=== PATIENT | female | born 1935 | race American Indian/Alaskan Native ===

== ENCOUNTER 2017-03-28 10:09 | Emergency (ER) | payer MEDICARE ==
[2017-03-28 11:29] LABS: Basophils % (Auto) 0.8 % (0.0-1.8); Eosinophils # (Auto) 0.2 K/mm3 (0.0-0.4); Hemoglobin 13.1 gm/dl (10.1-14.3); Lymphocytes # (Auto) 1.8 K/mm3 (1.2-5.4); Lymphocytes % (Auto) 28.5 % (13.4-35.0); Mean Corpuscular HGB Conc 33 % (30-34); Mean Corpuscular Hemoglobin 28 pg (28-32); Mean Corpuscular Volume 86 fl (79-97); Monocytes # (Auto) 0.5 K/mm3 (0.0-0.8); Monocytes % (Auto) 7.3 % (0.0-7.3); Platelet Count 139 K/mm3 (140-440); Red Blood Count 4.63 M/mm3 (3.65-5.03)
[2017-03-28 11:43] LABS: Calcium 9.5 mg/dL (8.4-10.2)
--- NOTE | 2017-03-28 12:18 | XRay Report ---
RIGHT FOOT, 3 views: History: Pain and discoloration of great toe Limited exam with only 2 views. There is a questionable cortical defect at the base of the great toe which could represent a fracture. This is only seen on the frontal view. Please correlate with the patient. The remaining bony structures are intact. There are moderate diffuse degenerative changes. Large plantar spur. Diffuse soft tissue swelling. IMPRESSION: Questionable fracture of the great toe.
[2017-03-28] MEDS ORDERED: PERCOCET 5/325 ONE (20:10)
[2017-03-28] MEDS ORDERED: PERCOCET 5/325 PO PRN (20:13)
--- NOTE | 2017-03-29 01:57 | Emergency Department Report ---
HPI - General Chief Complaint: Extremity Injury, Lower Time Seen by Provider: 03/29/17 01:40 - HPI HPI: Room 4 The patient is a 81-year-old female presented with a chief complaint of right great toe pain. The patient states she's had pain in her right great toe since 03/13/2017. Patient states pain is intermittent. Patient denies any preceding trauma to the right great toe. Patient denies any history of fever. Patient describes pain as stinging in nature. Patient states upon arrival her pain was partially 7-8/10 but after being given Percocet is decreased to 3/10 currently. Patient denies any other forms of pain. Patient acknowledges she has a history of gout and rheumatoid arthritis Location: Right great toe Duration: Approximately 2.5 weeks Quality: Stinging Severity: Currently 3/10 Modifying factors: [see above] Context: [see above] Mode of transportation: [not driving] ED Past Medical Hx - Past Medical History Previous Medical History?: Yes Hx Hypertension: Yes Hx Diabetes: Yes Hx of Cancer: Yes ([place], 2012) - Surgical History Past Surgical History?: Yes Additional Surgical History: L mastectomy 2012; cervical fusion - Family History Family history: no significant - Social History Smoking Status: Never Smoker Substance Use Type: None - Medications Home Medications: Home Medications Medication Instructions Recorded Confirmed Last Taken Type Colchicine [Colcrys] 0.6 mg PO DAILY #30 tablet 03/29/17 Unknown Rx oxyCODONE /ACETAMINOPHEN [Percocet 1 - 2 tab PO Q6HR PRN #14 tablet 03/29/17 Unknown Rx 5/325] ED Review of Systems ROS: Stated complaint: RIGHT BIG TOE PAIN Other details as noted in HPI Constitutional: denies: fever Eyes: denies: eye pain ENT: denies: throat pain Cardiovascular: denies: chest pain Gastrointestinal: denies: abdominal pain Musculoskeletal: arthralgia, myalgia Neurological: denies: headache Physical Exam - Physical Exam Vital Signs: Vital Signs 03/28/17 03/28/17 03/29/17 10:23 20:03 01:45 Temperature 98.2 F 98 F Pulse Rate 94 H 87 Respiratory 18 18 16 Rate Blood Pressure 152/110 191/117 O2 Sat by Pulse 99 99 98 Oximetry Physical Exam: GENERAL: The patient is well-developed well-nourished female lying on stretcher not appear to be in acute distress. [] HEENT: Normocephalic. Atraumatic. Extraocular motions are intact. Patient has moist mucous membranes. NECK: Supple. Trachea midline CHEST/LUNGS: There is no respiratory distress noted. HEART/CARDIOVASCULAR: Regular. There is no tachycardia. There is no gallop rub or murmur. ABDOMEN: Abdomen is soft, nontender. Patient has normal bowel sounds. There is no abdominal distention. SKIN: There is no rash. There is no edema. There is no diaphoresis. No cellulitis appreciated of the right great toe NEURO: The patient is awake, alert, and oriented. The patient is cooperative. The patient has normal speech MUSCULOSKELETAL: There is pain and tenderness of the right great toe. There is no evidence of acute injury. ED Course Vital Signs 03/28/17 03/28/17 03/29/17 10:23 20:03 01:45 Temperature 98.2 F 98 F Pulse Rate 94 H 87 Respiratory 18 18 16 Rate Blood Pressure 152/110 191/117 O2 Sat by Pulse 99 99 98 Oximetry ED Medical Decision Making - Lab Data Result diagrams: 03/28/17 11:15 03/28/17 11:15 Laboratory Tests 03/28/17 03/28/17 03/28/17 11:15 11:15 20:17 WBC 6.3 RBC 4.63 Hgb 13.1 Hct 40.0 MCV 86 MCH 28 MCHC 33 RDW 15.0 Plt Count 139 L Lymph % (Auto) 28.5 [place] % (Auto) 7.3 Eos % (Auto) 3.0 Baso % (Auto) 0.8 Lymph # 1.8 [place] # 0.5 Eos # 0.2 Baso # 0.0 Seg Neutrophils % 60.4 Seg Neutrophils # 3.8 Sodium 145 Potassium 4.5 Chloride 103.7 Carbon Dioxide 27 Anion Gap 19 BUN 26 H Creatinine 1.1 Estimated GFR 58 BUN/Creatinine Ratio 24 Glucose 224 H Lactic Acid 2.20 H* Calcium 9.5 C-Reactive Protein 03/28/17 03/29/17 20:17 02:46 WBC RBC Hgb Hct MCV MCH MCHC RDW Plt Count Lymph % (Auto) [place] % (Auto) Eos % (Auto) Baso % (Auto) Lymph # [place] # Eos # Baso # Seg Neutrophils % Seg Neutrophils # Sodium Potassium Chloride Carbon Dioxide Anion Gap BUN Creatinine Estimated GFR BUN/Creatinine Ratio Glucose Lactic Acid 1.80 Calcium C-Reactive Protein 1.80 H - Radiology Data Radiology results: report reviewed (right foot x-ray), image reviewed (right foot x-ray) interpreted by me: Right foot x-ray-no fracture seen of the right great toe RIGHT FOOT, 3 views: History: Pain and discoloration of great toe Limited exam with only 2 views. There is a questionable cortical defect at the base of the great toe which could represent a fracture. This is only seen on the frontal view. Please correlate with the patient. The remaining bony structures are intact. There are moderate diffuse degenerative changes. Large plantar spur. Diffuse soft tissue swelling. IMPRESSION: Questionable fracture of the great toe. Transcribed By: TTR Dictated By: BRAULIO KAUR JR, MD Electronically Authenticated By: BRAULIO KAUR JR, MD Signed Date/Time: 03/28/171212 DD/ 11 TD/TT: 03/28/171212 - Differential Diagnosis Podagra, Gout, neuropathy, diabetic foot infection Critical care attestation.: If time is entered above; I have spent that time in minutes in the direct care of this critically ill patient, excluding procedure time. ED Disposition Clinical Impression: Podagra, Pain of right great toe Disposition: - TO HOME OR SELFCARE Is pt being admited?: No Does the pt Need Aspirin: No Condition: Stable Instructions: Arthralgia (ED) Additional Instructions: Return to the emergency department immediately should you develop worsening symptoms, fever, inability to tolerate food or liquid or any other concerns. Prescriptions: Colchicine [Colcrys] 0.6 mg PO DAILY #30 tablet oxyCODONE /ACETAMINOPHEN [Percocet 5/325] 1 - 2 tab PO Q6HR PRN #14 tablet PRN Reason: Pain Referrals: PRIMARY CAREMD [Primary Care Provider] - 3-5 Days MARCO RIBEIRO MD [Staff Physician] - 3-5 Days (Dr. Ribeiro is an orthopedic surgeon. Please follow up with him for further evaluation) Time of Disposition: 03:32
[2017-03-29 04:37] VITALS: BP 128/74
== END 2017-03-29 06:03 | disposition home or self-care (01) ==
LOC: ED 10:09
DX: M79.674 Pain in right toe(s) (principal); M10.9 Gout, unspecified; I10 Essential (primary) hypertension; E11.9 Type 2 diabetes mellitus without complications
CPT/HCPCS: 36415; 80048; 82140; 85025; 86140; 99284

== ENCOUNTER 2018-12-31 13:44 | Inpatient (IN) | payer MEDICARE ==
[2018-12-31] MEDS ORDERED: DEXTROSE 50% IN WATER (25GM) 50 ML SYRINGE IV PRN (14:56)
[2018-12-31 15:55] LABS: Basophils # (Auto) 0.1 K/mm3 (0.0-0.1); Basophils % (Auto) 0.9 % (0.0-1.8); Eosinophils # (Auto) 0.5 K/mm3 (0.0-0.4); Eosinophils % (Auto) 9.6 % (0.0-4.3); Hematocrit 33.5 % (30.3-42.9); Hemoglobin 11.2 gm/dl (10.1-14.3); Mean Corpuscular HGB Conc 33 % (30-34); Mean Corpuscular Volume 87 fl (79-97); Monocytes # (Auto) 0.4 K/mm3 (0.0-0.8); Platelet Count 104 K/mm3 (140-440); Red Blood Count 3.84 M/mm3 (3.65-5.03); Red Cell Distribution Width 17.9 % (13.2-15.2)
[2018-12-31 16:09] LABS: Chol/HDL Ratio 2.47 %
[2018-12-31 16:10] LABS: INR 1.29 (0.87-1.13); Partial Thromboplastin Time 33.2 Sec. (24.2-36.6)
--- NOTE | 2018-12-31 16:26 | XRay Report ---
CHEST 2 VIEWS INDICATION: SOB, COUGH, R/O PNEUMONIA. COMPARISON: 07/28/2017 FINDINGS: Support devices: None. Heart: Within normal limits. Lungs/pleura: No acute air space or interstitial disease. No pneumothorax. Additional findings: Lower cervical fusion and prosthetic cardiac valve are noted. IMPRESSION: No acute findings. Signer Name: Reji Sellers Jr, MD Signed: 12/31/2018 4:22 PM Workstation Name: [id number]
[2018-12-31 16:33] LABS: Albumin 4.2 g/dL (3.9-5); Calcium 9.4 mg/dL (8.4-10.2)
[2018-12-31] MEDS: INSULIN LISPRO 100 UNIT/ML SUB-Q SCH ×2 (16:56→22:36)
[2019-01-01] MEDS: INSULIN LISPRO 100 UNIT/ML SUB-Q SCH ×3 (08:35→17:04)
--- NOTE | 2019-01-01 08:53 | History and Physical Report ---
History of Present Illness Date of examination: 01/01/19 Date of admission: 12/31/18 14:54 Chief complaint: Near syncope, Shortness of breath History of present illness: Pt is an 83 y/o lady with a history of aortic stenosis status post valvular replacement, diabetes mellitus, breast cancer status post mastectomy in 2009; hypertension, and hyperlipidemia presented to my office in company of her adult daughter who was called by the patient for not feeling well. The patient complained of cough with shortness of breath and near syncope for 1 day duration. During this period who had unstable gait with feeling of spinning around. Denies any chest pain, orthopnea, PND fever or chills. Direct admission was therefore requested. Past History Past Medical History: diabetes, hypertension, hyperlipidemia, other (aoertic stenosis s/p AVR) Past Surgical History: Other (AVR) Social history: denies: smoking, alcohol abuse Family history: hypertension Medications and Allergies Allergies Allergy/AdvReac Type Severity Reaction Status Date / Time high dose ASA Allergy Unknown Uncoded 03/28/17 10:32 Home Medications Medication Instructions Recorded Confirmed Last Taken Type Allopurinol 300 mg PO DAILY 07/28/17 12/31/18 07/27/17 History Travatan Z 0.004% 1 drop OU QHS 07/28/17 12/31/18 07/27/17 History Anastrozole (Nf) 1 mg PO DAILY 07/29/17 12/31/18 07/27/17 History Insulin Detemir [Levemir Flextouch] 20 unit SQ HS 07/29/17 12/31/18 07/27/17 Hi story Levothyroxine 88 mcg PO DAILY 07/29/17 12/31/18 07/27/17 History amLODIPine 5 mg PO DAILY 07/29/17 12/31/18 07/27/17 History Apixaban [Eliquis] 5 mg PO BID 12/31/18 12/31/18 Unknown History Atorvastatin (Nf) [Lipitor] 10 mg PO QHS 12/31/18 12/31/18 Unknown History Budesonide/Formoterol Fumarate 2 puff IH BID 12/31/18 12/31/18 Unknown History [Symbicort 160-4.5 Mcg Inhaler] Furosemide [Lasix TAB] 20 mg PO QDAY 12/31/18 12/31/18 Unknown History Gabapentin [Neurontin] 800 mg PO BID 12/31/18 12/31/18 Unknown History Losartan [Cozaar] 50 mg PO DAILY 12/31/18 12/31/18 Unknown History Meclizine [Antivert] 12.5 mg PO BID PRN 12/31/18 12/31/18 Unknown History Metoprolol [Lopressor TAB] 25 mg PO DAILY 12/31/18 12/31/18 Unknown History Oxybutynin [Ditropan] 5 mg PO DAILY 12/31/18 12/31/18 Unknown History Pantoprazole [Protonix TAB] 40 mg PO QDAY 12/31/18 12/31/18 Unknown History hydrALAZINE [Apresoline TAB] 5 mg PO BID 12/31/18 12/31/18 Unknown History Benzonatate [Tessalon Perles] 100 mg PO Q8HR #30 capsule 01/01/19 Unknown Rx Lispro Insulin [HumaLOG] 0 unit SUB-Q ACHS units 01/01/19 Unknown Rx Active Meds: Active Medications Dextrose (D50w (25gm) Syringe) 50 ml IV PRN PRN PRN Reason: Hypoglycemia Levofloxacin/Dextrose (Levaquin 500mg/100ml) 500 mg in 100 mls @ 66.667 mls/hr IV Q48HR [facility] Insulin Human Lispro (Humalog) 0 unit SUB-Q ACHS [facility]; Protocol Last Admin: 01/01/19 08:35 Dose: 1 unit Documented by: Pneumococcal Polyvalent Vaccine (Pneumovax 23) 0.5 ml IM .ONCE ONE Stop: 01/01/19 12:01 Sodium Chloride (Sodium Chloride Flush Syringe 10 Ml) 10 ml IV BID [facility] Last Admin: 12/31/18 22:36 Dose: 10 ml Documented by: Sodium Chloride (Sodium Chloride Flush Syringe 10 Ml) 10 ml IV PRN PRN PRN Reason: LINE FLUSH Review of Systems Constitutional: no weight loss, no weight gain, no fever, no chills Ears, nose, mouth and throat: no ear pain, no tinnitis, no decreased hearing Cardiovascular: no chest pain, no orthopnea, no palpitations, no rapid/irregular heart beat, no edema Respiratory: cough, cough with sputum, shortness of breath Gastrointestinal: no abdominal pain, no nausea, no vomiting Genitourinary Female: dysuria, urinary frequency, urgency Musculoskeletal: no neck stiffness, no neck pain, no shooting arm pain, no arm numbness/tingling, no low back pain Neurological: no paralysis, no weakness, no parathesias, no numbness Psychiatric: no memory loss, no change in sleep habits, no sleep disturbances, no insomnia Endocrine: no cold intolerance, no heat intolerance, no polyphagia, no excessive thirst Hematologic/Lymphatic: no easy bruising, no easy bleeding Allergic/Immunologic: no urticaria, no allergic rhinitis Exam - Physical Exam Narrative exam: Constitutional: Well-nourished well-developed. In no distress Head: Normocephalic atraumatic Eyes: Pupils are equal round and reactive to light Nose: No enlarged turbinates, no septal deviation. Mouth: Moist mucous membranes. Neck: Supple no thyromegaly. No bruit. No JVD Heart: Regular rate and rhythm, S1-S2 normal. No rubs murmurs or gallop Lungs: Clear to auscultation bilaterally. no rales or rhonchi Abdomen: Soft, nontender. Bowel sound are present. Extremities: No edema, no cyanosis, no clubbing. Neuro: Alert oriented Oriented x3. No focal sensory or motor deficit. Skin: No rashes or hyperpigmented spots Musculoskeletal system: No joint pain or swelling Hematological: No petechia or subcutanous hemorrhages. Immunological: No multiple septic spots on the skin Lymphatic: No generalized lymphadenopathy Psychiatry: Euthymic. Calm. - Constitutional Vitals: Temp Pulse Resp BP Pulse Ox 98.1 F 65 18 139/70 97 01/01/19 08:01 01/01/19 08:01 01/01/19 08:01 01/01/19 08:01 01/01/19 08:01 Results - Labs CBC & Chem 7: 12/31/18 15:27 12/31/18 06:16 Labs: Abnormal lab results 12/31/18 12/31/18 12/31/18 Range/Units 06:16 15:27 15:27 RDW 17.9 H (13.2-15.2) % Plt Count 104 L (140-440) K/mm3 Lymph % (Auto) 37.0 H (13.4-35.0) % [place] % (Auto) 8.0 H (0.0-7.3) % Eos % (Auto) 9.6 H (0.0-4.3) % Eos # 0.5 H (0.0-0.4) K/mm3 PT 15.8 H (12.2-14.9) Sec. INR 1.29 H (0.87-1.13) BUN 29 H (7-17) mg/dL Glucose 135 H (65-100) mg/dL POC Glucose (70-105) AST 43 H (5-40) units/L 12/31/18 12/31/18 01/01/19 Range/Units 16:47 21:35 07:15 RDW (13.2-15.2) % Plt Count (140-440) K/mm3 Lymph % (Auto) (13.4-35.0) % [place] % (Auto) (0.0-7.3) % Eos % (Auto) (0.0-4.3) % Eos # (0.0-0.4) K/mm3 PT (12.2-14.9) Sec. 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
[2019-01-01] MEDS ORDERED: PNEUMOCOCCAL 23 Valent 0.5 ML VIAL IM ONE (12:00)
[2019-01-01] MEDS ORDERED: FLU VACC QUAD 2019-20 (3 YR UP)/PF 60 MCG/0.5 ML SYRINGE IM ONE (12:00)
[2019-01-01 14:37] VITALS: BP 162/77
--- NOTE | 2019-01-01 17:33 | Discharge Summary ---
Providers - Providers Date of Admission: 12/31/18 14:54 Date of discharge: 01/01/19 Attending physician: JJ BARROS none Primary care physician: JJ BARROS Hospitalization Reason for admission: shortness of breath, cough Pertinent studies: Chest x-ray was unremarkable Procedures: None Hospital course: Pt is an 83 y/o lady with a history of aortic stenosis status post valvular replacement, diabetes mellitus, breast cancer status post mastectomy in 2009; hypertension, and hyperlipidemia presented to my office in company of her adult daughter who was called by the patient for not feeling well. The patient complained of cough with shortness of breath and near syncope for 1 day duration. During this period who had unstable gait with feeling of spinning around. Denies any chest pain, orthopnea, PND fever or chills. Direct admission was therefore requested. CXR was normal. Pulse Ox was normal. No more unstable gait or feeling of spining around. Patient was adamant she want to go home today. She was therefore discharged to f/u with PCP in 2-3 days. Disposition: TO HOME OR SELFCARE Time spent for discharge: 35 minutes - Discharge Diagnoses (1) Cough Status: Acute (2) Shortness of breath on exertion Status: Acute (3) Diabetes mellitus type 2 in obese Status: Acute Core Measure Documentation - Palliative Care Palliative Care/ Comfort Measures: Not Applicable - Core Measures Any of the following diagnoses?: none Exam - Physical Exam Narrative exam: Constitutional: Well-nourished well-developed. In no distress Head: Normocephalic atraumatic Eyes: Pupils are equal round and reactive to light Nose: No enlarged turbinates, no septal deviation. Mouth: Moist mucous membranes. Neck: Supple no thyromegaly. No bruit. No JVD Heart: Regular rate and rhythm, S1-S2 normal. No rubs murmurs or gallop Lungs: Clear to auscultation bilaterally. no rales or rhonchi Abdomen: Soft, nontender. Bowel sound are present. Extremities: No edema, no cyanosis, no clubbing. Neuro: Alert oriented Oriented x3. No focal sensory or motor deficit. Skin: No rashes or hyperpigmented spots Musculoskeletal system: No joint pain or swelling Hematological: No petechia or subcutanous hemorrhages. Immunological: No multiple septic spots on the skin Lymphatic: No generalized lymphadenopathy Psychiatry: Euthymic. Calm. - Constitutional Vitals: Temp Pulse Resp BP Pulse Ox 98.3 F 68 18 162/77 96 01/01/19 14:12 01/01/19 14:12 01/01/19 14:12 01/01/19 14:12 01/01/19 14:12 Plan Weight Bearing Status: Weight Bear as Tolerated Diet: diabetic Follow up with: JJ BARROS MD [Primary Care Provider] - 3 Days Prescriptions: Benzonatate [Tessalon Perles] 100 mg PO Q8HR #30 capsule
== END 2019-01-01 18:02 | disposition home or self-care (01) | DRG 149 ==
LOC: UNDOADMIN 13:44 → 2B-ACE 13:44
PROVIDERS: ADMIT Family Medicine; ATTEND Family Medicine
DX: H81.10 Benign paroxysmal vertigo, unspecified ear (principal); E11.9 Type 2 diabetes mellitus without complications; Z82.49 Family history of ischemic heart disease and other diseases of the circulatory system; E78.5 Hyperlipidemia, unspecified; I10 Essential (primary) hypertension; Z95.4 Presence of other heart-valve replacement; Z88.8 Allergy status to other drugs, medicaments and biological substances; Z79.01 Long term (current) use of anticoagulants; Z79.4 Long term (current) use of insulin; Z90.10 Acquired absence of unspecified breast and nipple; Z85.3 Personal history of malignant neoplasm of breast
CPT/HCPCS: 36415; 71046; 80053; 80061; 82962; 83735; 84100; 85025; 85610; 85730; 87040; 90686; 90732; G0378; J1815; J1956